=== PATIENT | female | born 1930 | race Caucasian/White ===

== ENCOUNTER 2020-01-30 10:36 | Emergency (ER) | payer MEDICARE, OTHER ==
[~2020-01-30] VITALS: Ht 160 cm; Wt 86.0 kg
--- NOTE | 2020-01-30 11:15 | Diagnostic Imaging Report ---
INDICATION: Cough PA and lateral chest Heart size and pulmonary vascularity are normal. Lungs are clear. There are no effusions or pneumothoraces. IMPRESSION: Negative chest Dictated by: Dictated on workstation # [id number]
[2020-01-30] MEDS ORDERED: BENZ100C18 PO (11:43)
[2020-01-30] MEDS ORDERED: AZEL137S11 NS (11:43)
--- NOTE | 2020-01-30 11:43 | ED General ---
General Chief Complaint: Cough/Cold/Flu Symptoms Stated Complaint: COUGH Nursing Triage Note: Patient presents to the ED with c/o of nonproductive cough and feeling unwell. She reports her cough started today and states, "I just don't feel well". Nursing Sepsis Screen: No Definite Risk History of Present Illness Date Seen by Provider: Jan 30, 2020 Time Seen by Provider: 11:41 Initial Comments Patient presenting to emergency department for evaluation of cough that started earlier today and she wanted to be checked for it. She says she has nasal congestion with it but no other symptoms including no fevers chills nausea vomiting shortness of breath production to the cough chest pain or leg edema. She says that the cough is really not that bad but she is worried about all of the suarez virus news. She denies any recent travel or contacts with [employer]. She is in no obvious distress with normal vital signs other than hypertension and she says she is due to take one of her blood pressure medicines. Allergies and Home Medications Allergies Coded Allergies: egg (Verified Allergy, Unknown, 01/30/20) Home Medications Azelastine HCl 137 Mcg/0.137 Ml [place].pump, 137 MCG NS BID Prescribed by: VELIA ORTIZ on 01/30/20 1143 Benzonatate 100 Mg Capsule, 100 MG PO TID PRN for cough Prescribed by: VELIA ORTIZ on 01/30/20 1143 Patient Home Medication List Home Medication List Reviewed: Yes Review of Systems Review of Systems Constitutional: no symptoms reported EENTM: nose congestion Respiratory: cough Cardiovascular: no symptoms reported Gastrointestinal: no symptoms reported Genitourinary: no symptoms reported Musculoskeletal: no symptoms reported Skin: no symptoms reported All Other Systems Reviewed Negative Unless Noted: Yes Past Kxvlidy-Yohtjp-Qxjvhx Hx Patient Social History Alcohol Use: Denies Use Recreational Drug Use: No Smoking Status: Never a Smoker 2nd Hand Smoke Exposure: No Recent Foreign Travel: No Contact w/Someone Who Travel: No Recent Infectious Disease Expo: No Recent Hopitalizations: No Physical Abuse: No Sexual Abuse: No Mistreated: No Fear: No Seasonal Allergies Seasonal Allergies: No Past Medical History Surgeries: Yes Adenoidectomy, Appendectomy, Cardiac, Eye Surgery, Gallbladder, Tonsillectomy Respiratory: No Cardiac: Yes (CHF) Angina, Cardiomyopathy, Heart Attack, High Cholesterol, Hypertension Neurological: No Genitourinary: Yes Gastrointestinal: Yes Diverticulosis Musculoskeletal: Yes Arthritis Endocrine: No HEENT: No Cancer: No Psychosocial: No Integumentary: No Blood Disorders: No Physical Exam Vital Signs Vital Signs - First Documented 01/30/20 10:55 Temp 36.9 Pulse 68 Resp 18 B/P (MAP) 201/79 (119) Pulse Ox 99 O2 Delivery Room Air Capillary Refill : Less Than 3 Seconds Height, Weight, BMI Height: '" Weight: lbs. oz. kg; 33.00 BMI Method: General Appearance: No Apparent Distress, WD/WN HEENT: PERRL/EOMI Neck: Full Range of Motion Respiratory: Lungs Clear, No Respiratory Distress Cardiovascular: Regular Rate, Rhythm Gastrointestinal: Non Tender, Soft Back: Normal Inspection Extremity: Normal Capillary Refill, No Pedal Edema Neurologic/Psychiatric: Alert, Oriented x3 Skin: Warm/Dry Progress/Results/Core Measures Suspected Sepsis Recent Fever Within 48 Hours: No Infection Criteria Present: Suspected New Infection New/Unexplained Altered Menta: No Sepsis Screen: No Definite Risk SIRS Temperature: Pulse: 68 Respiratory Rate: 18 Blood Pressure 201 /79 Mean: 119 Results/Orders Micro Results Microbiology 01/30/20 Influenza Types A,B Antigen (RAMOS) - Final, Complete My Orders Orders - VELIA ORTIZ DO Chest Pa/Lat (2 View) (01/30/20 10:55) Influenza A And B Antigens (01/30/20 10:55) Vital Signs/I&O 01/30/20 01/30/20 10:55 11:49 Temp 36.9 36.9 Pulse 68 68 Resp 18 18 B/P (MAP) 201/79 (119) 202/78 (119) Pulse Ox 99 99 O2 Delivery Room Air Capillary Refill : Less Than 3 Seconds Blood Pressure Mean: 119 Progress Note : Progress Note Patient presenting to emergency department for evaluation of a cough that is likely from an upper respiratory infection. Chest x-ray and flu swab were normal and she appears well with normal vital signs so she'll be discharged in stable condition and told to try taking cough drops first and if she is having more cough she could fill the Tessalon and nasal spray that I wrote for her. Patient aware and agreeable with plan for discharge and verbalized understanding of the need for follow-up and strict ED return precautions discussed including worsening shortness of breath fevers or other general concerns. Departure Impression Primary Impression: Cough Disposition: HOME, SELF-CARE Condition: Stable Departure-Patient Inst. Referrals: [facility]/JOSE ROBERTO (PCP) Primary Care Physician VIANNEY MILLER APRN (Family) Primary Care Physician Patient Instructions: Cough, Adult (DC) Scripts Benzonatate (TESSALON PERLES) 100 Mg Capsule 100 MG PO TID PRN for cough, #15 CAP Prov: VELIA ORTIZ DO 01/30/20 Azelastine HCl (Azelastine HCl) 137 Mcg/0.137 Ml [place].pump 137 MCG NS BID for 10 Days, #1 APPLIC Prov: VELIA ORTIZ DO 01/30/20 VELIA ORTIZ DO Jan 30, 2020 11:43
[2020-01-30 11:49] VITALS: BP 202/78
--- OUTSIDE RECORDS SUMMARY | 2020-01-30 12:24 | XMS REPORT | Continuity of Care Document ---
Author Organization Unknown Address Unknown Phone Unavailable Allergies There is no data. Medications There is no data. Problems There is no data. Procedures There is no data. Results Test Result Range TSH w/ FREE T4 - 02/02/19 14:46 TSH 2.13 mIU/L 0.40-4.50 T4, FREE 1.1 ng/dL 0.8-1.8 CMP - 02/02/19 14:46 GLUCOSE 82 mg/dL 65-99 UREA NITROGEN (BUN) 31 mg/dL 7-25 CREATININE 1.34 mg/dL 0.60-0.88 eGFR NON-AFR. GEORGIAN 36 mL/min/1.73m2 > OR = 60 eGFR 41 mL/min/1.73m2 > OR = 60 BUN/CREATININE RATIO 23 (calc) 6-22 SODIUM 140 mmol/L 135-146 POTASSIUM 4.8 mmol/L 3.5-5.3 CHLORIDE 104 mmol/L 98-110 CARBON DIOXIDE 25 mmol/L 20-32 CALCIUM 9.2 mg/dL 8.6-10.4 PROTEIN, TOTAL 6.8 g/dL 6.1-8.1 ALBUMIN 4.5 g/dL 3.6-5.1 GLOBULIN 2.3 g/dL (calc) 1.9-3.7 ALBUMIN/GLOBULIN RATIO 2.0 (calc) 1.0-2. 5 BILIRUBIN, TOTAL 0.6 mg/dL 0.2-1.2 ALKALINE PHOSPHATASE 117 U/L 33-130 AST 18 U/L 10-35 ALT 14 U/L 6-29 LIPID PANEL - 05/05/19 07:59 CHOLESTEROL, TOTAL 196 mg/dL <200 HDL CHOLESTEROL 46 mg/dL >50 TRIGLYCERIDES 199 mg/dL <150 LDL-CHOLESTEROL 118 mg/dL (calc) NRG CHOL/HDLC RATIO 4.3 (calc) <5.0 NON HDL CHOLESTEROL 150 mg/dL (calc) <13 0 CMP - 05/05/19 07:59 GLUCOSE 101 mg/dL 65-99 UREA NITROGEN (BUN) 39 mg/dL 7-25 CREATININE 1.45 mg/dL 0.60-0.88 eGFR NON-AFR. GEORGIAN 32 mL/min/1.73m2 > OR = 60 eGFR 37 mL/min/1.73m2 > OR = 60 BUN/CREATININE RATIO 27 (calc) 6-22 SODIUM 138 mmol/L 135-146 POTASSIUM 4.9 mmol/L 3.5-5.3 CHLORIDE 104 mmol/L 98-110 CARBON DIOXIDE 23 mmol/L 20-32 CALCIUM 9.0 mg/dL 8.6-10.4 PROTEIN, TOTAL 6.6 g/dL 6.1-8.1 ALBUMIN 4.2 g/dL 3.6-5.1 GLOBULIN 2.4 g/dL (calc) 1.9-3.7 ALBUMIN/GLOBULIN RATIO 1.8 (calc) 1.0-2. 5 BILIRUBIN, TOTAL 0.7 mg/dL 0.2-1.2 ALKALINE PHOSPHATASE 99 U/L 33-130 AST 15 U/L 10-35 ALT 12 U/L 6- TSH - 05/05/19 07:59 TSH 3.36 mIU/L 0.40-4.50 [facility] - 06/09/19 08:23 GLUCOSE 91 mg/dL 65-99 UREA NITROGEN (BUN) 27 mg/dL 7-25 CREATININE 1.07 mg/dL 0.60-0.88 eGFR NON-AFR. GEORGIAN 46 mL/min/1.73m2 > OR = 60 eGFR 54 mL/min/1.73m2 > OR = 60 BUN/CREATININE RATIO 25 (calc) 6-22 SODIUM 133 mmol/L 135-146 POTASSIUM 4.7 mmol/L 3.5-5.3 CHLORIDE 102 mmol/L 98-110 CARBON DIOXIDE 25 mmol/L 20-32 CALCIUM 8.9 mg/dL 8.6-10.4 TSH - 09/08/19 08:05 TSH 2.62 mIU/L 0.40-4.50 [facility] - 12/19/19 08:05 GLUCOSE 102 mg/dL 65-99 UREA NITROGEN (BUN) 27 mg/dL 7-25 CREATININE 1.22 mg/dL 0.60-0.88 eGFR NON-AFR. GEORGIAN 40 mL/min/1.73m2 > OR = 60 eGFR 46 mL/min/1.73m2 > OR = 60 BUN/CREATININE RATIO 22 (calc) 6-22 SODIUM 136 mmol/L 135-146 POTASSIUM 5.0 mmol/L 3.5-5.3 CHLORIDE 106 mmol/L 98-110 CARBON DIOXIDE 23 mmol/L 20-32 CALCIUM 9.5 mg/dL 8.6-10.4 PROTEIN, TOTAL 6.9 g/dL 6.1-8.1 ALBUMIN 4.5 g/dL 3.6-5.1 GLOBULIN 2.4 g/dL (calc) 1.9-3.7 ALBUMIN/GLOBULIN RATIO 1.9 (calc) 1.0-2. 5 BILIRUBIN, TOTAL 0.7 mg/dL 0.2-1.2 ALKALINE PHOSPHATASE 96 U/L 37-153 AST 14 U/L 10-35 ALT 12 U/L 6-29 TSH - 12/19/19 08:05 TSH 2.22 mIU/L 0.40-4.50 Encounters ACCT No. Visit Date/Time Discharge Status Pt. Type Provider Facility Loc./Unit Complaint [id number] 12/12/2019 12:20:00 12/12/2019 23:59: 59 CLS Outpatient VIANNEY MILLER [facility] [id number] 12/19/2019 08:00:00 Document Registration [id number] 09/08/2019 08:00:00 Document Registration [id number] 06/09/2019 08:15:00 Document Registration [id number] 05/05/2019 08:00:00 Document Registration [id number] 02/02/2019 14:00:00 Document Registration [id number] 01/30/2020 10:40:00 020 11:49:00 DIS Emergency VELIA ORTIZ DO [facility] ER FS COUGH
--- OUTSIDE RECORDS SUMMARY | 2020-01-30 12:24 | XMS REPORT ---
Author Author Katerina MILLER Organization [facility] Address [address] [place] [address] Care Team Providers Care Lead Electrician Name Role Phone VIANNEY MILLER Unavailable PROBLEMS Type Condition ICD9-CM Code QFC01-DB Code Onset Dates Condition S tatus SNOMED Code Problem Hypothyroidism (acquired) E03.9 Acti ve 395535265 Problem Seasonal allergic rhinitis, unspecified trigger J3 0.2 Active 613155584 Problem Mixed hyperlipidemia E78.2 Active 950048711 Problem Essential hypertension I10 Active 05293258 Problem Acquired hypothyroidism E03.9 Active 198517477 Problem Chronic congestive heart failure, unspecified he art failure type I50.9 Active 39064043 Problem Stage 3 chronic kidney disease N18.3 Active 019804137 ALLERGIES No Information ENCOUNTERS Encounter Location Date Diagnosis [address] [place] [address] March, [address] [place] [address] 07 Dec, 2019 Chronic congestive heart katiana lure, unspecified heart failure type I50.9 ; Stage 3 chronic kidney disease N18.3 ; Essential hypertension I10 ; Mixed hyperlipidemia E78.2 and Acquired hypothyroidism E03.[address] [place] [address] 04 Dec, 2019 Acquired hypothyroidism E03. 9 ; Essential hypertension I10 ; Stage 3 chronic kidney disease N18.3 and Mixed hyperlipidemia E78.2 [facility] [address] [place] [address] Nov, Viral URI J06.[address] [place] [address] Aug, Essential hypertension I10 ; Acquired hypothyroidism E03.9 ; Chronic congestive heart failure, unspecified heart failure type I50.9 ; Stage 3 chronic kidney disease N18.3 and Mixed hyperlipidemia E78.[address] [place] [address] Aug, Mixed hyperlipidemia E78.2 ; Essential hypertension I10 ; Stage 3 chronic kidney disease N18.3 ; Diarrhea, unspecified type R19.7 and Hypothyroidism (acquired) E03.[address] [place] [address] Aug, Diarrhea, unspecified type R 19.7 [address] [place] [address] Jul, Herpes zoster without compli cation B02.[address] [place] [address] Jun, Essential hypertension I10 [address] [place] [address] May, Essential hypertension I10 ; Chronic congestive heart failure, unspecified heart failure type I50.9 ; Hypothyroidism (acquired) E03.9 ; Stage 3 chronic kidney disease N18.3 and Mixed hyperlipidemia E78.[address] [place] [address] May, Stage 3 chronic kidney disea se N18.[address] [place] [address] May, [address] [place] [address] Apr, Chronic congestive heart katiana lure, unspecified heart failure type I50.9 ; Essential hypertension I10 and Stage 3 chronic kidney disease N18.[address] [place] [address] Apr, Elevated serum creatinine R7 9.89 ; Mixed hyperlipidemia E78.2 and Acquired hypothyroidism E03.[address] [place] [address] March, Pain of left leg M79.605 ; P ain in right leg M79.604 ; Acquired hypothyroidism E03.9 ; Essential hypertension I10 and Mixed hyperlipidemia E78.2 [facility] [address] [place] [address] Feb, Seasonal allergic rhinitis, unspecified trigger J30.[address] [place] [address] Jan, Elevated serum creatinine R7 9.[address] [place] [address] Jan, Acquired hypothyroidism E03. 9 ; Essential hypertension I10 ; Chronic congestive heart failure, unspecified heart failure type I50.9 ; Muscle cramp R25.2 and Yeast dermatitis B37.[address] [place] [address] Dec, Hypothyroidism (acquired) E0 3.9 IMMUNIZATIONS No Known Immunizations SOCIAL HISTORY Never Assessed REASON FOR VISIT Lab orders PLAN OF CARE VITAL SIGNS MEDICATIONS Unknown Medications RESULTS No Results PROCEDURES No Known procedures INSTRUCTIONS MEDICATIONS ADMINISTERED No Known Medications MEDICAL (GENERAL) HISTORY Type Description Date Medical History thyroid disorder Medical History hypertension Medical History heart attack Surgical History appendectomy Surgical History tonsillectomy and adenoidectomy Surgical History cardiac stent x2 Hospitalization History childbirth only Hospitalization History see surgeries x4 Hospitalization History heat attack
== END 2020-01-30 11:49 | disposition home or self-care (01) ==
LOC: ER FS 10:40
DX: R05 Cough (principal); I11.0 Hypertensive heart disease with heart failure; I50.9 Heart failure, unspecified
CPT/HCPCS: 71046; 87804

== ENCOUNTER 2020-09-28 16:17 | Emergency (ER) | payer MEDICARE, OTHER ==
[~2020-09-28 16:17] MED LIST: AZEL137S11 NS; BENZ100C18 PO
--- NOTE | 2020-09-28 16:37 | ED Cardiac General ---
History of Present Illness General Chief Complaint: Chest Pain Stated Complaint: CHEST PAIN; LT ARM Nursing Triage Note: Patient reports sudden onset of mild (/10) precordial chest pain this afternoon, states she took 1 nitroglycerin SL and the pain has completely resolved. 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 Source: patient Exam Limitations: no limitations History of Present Illness Date Seen by Provider: Sep 28, 2020 Time Seen by Provider: 16:20 Initial Comments 89-year-old female presents following an episode of chest pain which occurred home lasting just a couple minutes. Began her left chest and it radiation of pain to her left arm. She took one nitroglycerin and her symptoms resolved. She presents to the ER without chest pain and is feeling fine. Patient with history of CAD and typically does not take nitroglycerin. She states she took all of her daily medications today and has otherwise been feeling fine without recent illness, cough, soa, fever or chills, abdominal pain or nausea. Allergies and Home Medications Allergies Coded Allergies: egg (Verified Allergy, Unknown, 01/30/20) Home Medications Azelastine HCl 137 Mcg/0.137 Ml [facility].pump, 137 MCG NS BID Prescribed by: VELIA ORTIZ on 01/30/20 1143 Benzonatate 100 Mg Capsule, 100 MG PO TID PRN for cough Prescribed by: VELIA ORTIZ on 01/30/20 1143 Patient Home Medication List Home Medication List Reviewed: Yes Review of Systems Review of Systems Constitutional: No chills, No dizziness, No fever, No malaise, No weakness EENTM: No Symptoms Reported Respiratory: No Symptoms Reported; Denies Cough, Denies Shortness of Air Cardiovascular: Chest Pain; Denies Edema, Denies Irregular Heart Rate, Denies Lightheadedness, Denies Palpitations, Denies Syncope Gastrointestinal: Denies Abdominal Pain, Denies Constipated, Denies Diarrhea, Denies Vomiting Musculoskeletal: No back pain, No joint pain Skin: No change in color, No rash Psychiatric/Neurological: Denies Headache, Denies Numbness, Denies Paresthesia Past Uygvnif-Cvfrpo-Aitnwc Hx Past Med/Social Hx: Reviewed Nursing Past Med/Soc Hx Patient Social History 2nd Hand Smoke Exposure: No Recent Foreign Travel: No Contact w/Someone Who Travel: No Recent Infectious Disease Expo: No Recent Hopitalizations: No Seasonal Allergies Seasonal Allergies: No Past Medical History Surgeries: Yes Adenoidectomy, Appendectomy, Cardiac, Eye Surgery, Gallbladder, Tonsillectomy Respiratory: No Cardiac: Yes (CHF) Angina, Cardiomyopathy, Heart Attack, High Cholesterol, Hypertension Neurological: No Genitourinary: Yes Gastrointestinal: Yes Diverticulosis Musculoskeletal: Yes Arthritis Endocrine: No HEENT: No Cancer: No Psychosocial: No Integumentary: No Blood Disorders: No Physical Exam Vital Signs Vital Signs - First Documented 09/28/20 16:27 Temp 36.4 Pulse 87 Resp 18 B/P (MAP) 236/99 (144) Pulse Ox 98 O2 Delivery Room Air Capillary Refill : Less Than 3 Seconds Height, Weight, BMI Height: '" Weight: lbs. oz. kg; 33.00 BMI Method: General Appearance: No Apparent Distress, WD/WN Neck: Normal Inspection, Non Tender, Supple Respiratory: Chest Non Tender, Lungs Clear, Normal Breath Sounds, No Accessory Muscle Use Cardiovascular: Regular Rate, Rhythm, No Edema, No Gallop, No JVD Gastrointestinal: Non Tender, Soft Extremity: Normal Capillary Refill, Normal Inspection, Normal Range of Motion, Non Tender, No Calf Tenderness Neurologic/Psychiatric: Alert, Oriented x3, No Motor/Sensory Deficits, Normal Mood/Affect Progress/Results/Core Measures Results/Orders Lab Results Laboratory Tests Test 09/28/20 16:30 Range/Units White Blood Count 9.0 4.3-11.0 10^3/uL Red Blood Count 3.36 L 4.35-5.85 10^6/uL Hemoglobin 11.7 11.5-16.0 G/DL Hematocrit 34 L 35-52 % Mean Corpuscular Volume 100 H 80-99 FL Mean Corpuscular Hemoglobin 35 H 25-34 PG Mean Corpuscular Hemoglobin Concent 35 32-36 G/DL Red Cell Distribution Width 11.5 10.0-14.5 % Platelet Count 198 130-400 10^3/uL Mean Platelet Volume 10.7 H 7.4-10.4 FL Immature Granulocyte % (Auto) 0 % Neutrophils (%) (Auto) 66 42-75 % Lymphocytes (%) (Auto) 25 12-44 % Monocytes (%) (Auto) 7 0-12 % Eosinophils (%) (Auto) 1 0-10 % Basophils (%) (Auto) 0 0-10 % Neutrophils # (Auto) 6.0 1.8-7.8 X 10^3 Lymphocytes # (Auto) 2.2 1.0-4.0 X 10^3 Monocytes # (Auto) 0.7 0.0-1.0 X 10^3 Eosinophils # (Auto) 0.1 0.0-0.3 10^3/uL Basophils # (Auto) 0.0 0.0-0.1 10^3/uL Immature Granulocyte # (Auto) 0.0 0.0-0.1 10^3/uL Sodium Level 126 L 135-145 MMOL/L Potassium Level 5.0 3.6-5.0 MMOL/L Chloride Level 94 L 98-107 MMOL/L Carbon Dioxide Level 22 21-32 MMOL/L Anion Gap 10 5-14 MMOL/L Blood Urea Nitrogen 25 H 7-18 MG/DL Creatinine 1.33 H 0.60-1.30 MG/DL Estimat Glomerular Filtration Rate 38 BUN/Creatinine Ratio 19 Glucose Level 123 H 70-105 MG/DL Calcium Level 8.7 8.5-10.1 MG/DL Corrected Calcium 8.5 8.5-10.1 MG/DL Total Bilirubin 0.6 0.1-1.0 MG/DL Aspartate Amino Transf (AST/SGOT) 17 5-34 U/L Alanine Aminotransferase (ALT/SGPT) 13 0-55 U/L Alkaline Phosphatase 112 40-136 U/L Troponin I < 0.30 <0.30 NG/ML Total Protein 6.7 6.4-8.2 GM/DL Albumin 4.3 3.2-4.5 GM/DL My Orders Orders - ROVENSTINEJESSICA DO Ed Iv/Invasive Line Start (09/28/20 16:23) Chest 1 View Ap/Pa Only (09/28/20 16:23) Ekg Tracing (09/28/20 16:23) Cbc With Automated Diff (09/28/20 16:23) Comprehensive Metabolic Panel (09/28/20 16:23) Troponin I Fs (09/28/20 16:23) Vital Signs/I&O 09/28/20 09/28/20 09/28/20 16:27 16:36 17:35 Temp 36.4 Pulse 87 60 Resp 18 18 B/P (MAP) 236/99 (144) 198/73 Pulse Ox 98 94 O2 Delivery Room Air Room Air Room Air Blood Pressure Mean: 144 Progress Progress Note : Progress Note Patient without any episode of chest pain for entire ER visit, remained asymptomatic. Normal vital signs, EKG labs and chest x-ray. Likely episode of angina, relieved with one nitroglycerin. Discussed taking when necessary nitroglycerin for chest pain, up to 3 if necessary and calling 911 thereafter. Patient states this is what her hotel clerk told her and she understands. Initial ECG Impression Date: Sep 28, 2020 Initial ECG Impression Time: 16:20 Initial ECG Rate: 80 Initial ECG Rhythm: Normal Sinus Initial ECG Impression: Normal Comment RBBB Diagnostic Imaging Diagonstic Imaging: Xray Plain Films/CT/US/NM/MRI: chest Comments COMPARISON STUDY: Chest from January 29. FINDINGS: Frontal view of the chest demonstrates the lungs to be clear. The heart, mediastinum, pulmonary vascularity and visualized bony thorax are normal. IMPRESSION: Normal chest. Dictated by: Dictated on workstation # [id number] Dict: 09/28/20 1633 Trans: 09/28/20 1644 [facility] [id number] Interpreted by: NALLELY MCCRACKEN MD Electronically signed by: NALLELY MCCRACKEN MD 09/28/20 1644 Departure Impression Primary Impression: Chest pain Qualified Codes: R07.9 - Chest pain, unspecified Disposition: 01 HOME, SELF-CARE Condition: Stable Departure-Patient Inst. Decision time for Depature: 17:07 Referrals: [facility] (PCP) Primary Care Physician VIANNEY MILLER APRN (Family) Primary Care Physician Patient Instructions: Chest Pain (DC) Add. Discharge Instructions: Call your Sales Ledger Administrator on Wednesday to notify them of your episode of chest pain relieved with 1 nitroglycerin. If you have a return of chest pain, please take a nitroglycerin every 5 minutes (up to 3) and if not relieved after 3, call 911 and get to the nearest ER All discharge instructions reviewed with patient and/or family. Voiced understanding. JESSICA DIAMOND DO Sep 28, 2020 16:37
[2020-09-28 16:42] LABS: BASOPHILS % (AUTO) 0 % (0-10); EOSINOPHILS % (AUTO) 1 % (0-10); HEMATOCRIT 34 % (35-52); HEMOGLOBIN 11.7 G/DL (11.5-16.0); LYMPHOCYTES # (AUTO) 2.2 X 10^3 (1.0-4.0); LYMPHOCYTES % (AUTO) 25 % (12-44); MEAN CORPUSCULAR HEMOGLOBIN 35 PG (25-34); MEAN CORPUSCULAR HGB CONC 35 G/DL (32-36); MEAN CORPUSCULAR VOLUME 100 FL (80-99); MEAN PLATELET VOLUME 10.7 FL (7.4-10.4); MONOCYTES % (AUTO) 7 % (0-12); NEUTROPHILS % (AUTO) 66 % (42-75); PLATELET COUNT 198 10^3/uL (130-400)
[2020-09-28 16:43] LABS: EOSINOPHILS # (AUTO) 0.1 10^3/uL (0.0-0.3); MONOCYTES # (AUTO) 0.7 X 10^3 (0.0-1.0)
--- NOTE | 2020-09-28 16:45 | Diagnostic Imaging Report ---
INDICATION: Chest pain, left arm pain, history of myocardial infarction. COMPARISON STUDY: Chest from January 29. FINDINGS: Frontal view of the chest demonstrates the lungs to be clear. The heart, mediastinum, pulmonary vascularity and visualized bony thorax are normal. IMPRESSION: Normal chest. Dictated by: Dictated on workstation # [id number]
[2020-09-28 16:55] LABS: BUN/CREATININE RATIO 19; CARBON DIOXIDE 22 MMOL/L (21-32); CHLORIDE 94 MMOL/L (98-107); CREATININE SERUM 1.33 MG/DL (0.60-1.30); GFR ESTIMATED 38; SODIUM 126 MMOL/L (135-145)
[2020-09-28 16:56] LABS: ALANINE AMINOTRANSFERASE 13 U/L (0-55); ALBUMIN 4.3 GM/DL (3.2-4.5); ALKALINE PHOSPHATASE 112 U/L (40-136); BILIRUBIN,TOTAL 0.6 MG/DL (0.1-1.0); CALCIUM 8.7 MG/DL (8.5-10.1); GLUCOSE 123 MG/DL (70-105); TOTAL PROTEIN 6.7 GM/DL (6.4-8.2)
[2020-09-28 17:35] VITALS: BP 198/73
== END 2020-09-28 17:24 | disposition home or self-care (01) ==
LOC: EDUNIT# 16:17 → ER FS 16:20
DX: R07.9 Chest pain, unspecified (principal); I25.2 Old myocardial infarction
CPT/HCPCS: 36415; 71045; 80053; 84484; 85025

== ENCOUNTER 2020-12-03 10:36 | Emergency (ER) | payer MEDICARE, OTHER ==
[~2020-12-03] VITALS: Ht 160 cm; Wt 81.6 kg
--- NOTE | 2020-12-03 10:59 | ED General ---
General Chief Complaint: Trauma-Non Activation Stated Complaint: FALL Nursing Triage Note: Patient reports she fell getting into her vehicle on 11/26/2020. She states she hit the back of her head on concrete, states she has been feeling lightheaded, dizzy, and slightly nauseous since she fell. Patient states she takes a baby aspirin every day, no other blood thinners. Nursing Sepsis Screen: No Definite Risk Source of Information: Patient Exam Limitations: No Limitations History of Present Illness Date Seen by Provider: Dec 03, 2020 Time Seen by Provider: 11:20 Initial Comments Patient presents with feeling of lightheadedness and nausea for the past one week occurring after a fall that she had on November 26. Patient states that she was getting under her car and her hand slipped and she fell backwards hitting her head on the concrete. She denies any loss of consciousness, confusion or feeling dazed. She did have a slight headache and the nausea which is been intermittent since then, she feels worse today. Denies any weakness of extremities, neck or back pain. Denies any extremity pain. Headache is slight and nausea is slight without vomiting. Denies history of stroke, seizure or concussion. Patient does take a baby aspirin daily. Allergies and Home Medications Allergies Coded Allergies: egg (Verified Allergy, Unknown, 01/30/20) Home Medications Azelastine HCl 137 Mcg/0.137 Ml [place].pump, 137 MCG NS BID Prescribed by: VELIA ORTIZ on 01/30/20 1143 Benzonatate 100 Mg Capsule, 100 MG PO TID PRN for cough Prescribed by: VELIA ORTIZ on 01/30/20 1143 Meclizine HCl 25 Mg Tablet, 25 MG PO Q8H Prescribed by: JESSICA DIAMOND on 12/03/20 1140 Ondansetron 4 Mg Tab.rapdis, 4 MG PO TID Prescribed by: JESSICA BAGLEYSTJUNIOR on 12/03/20 1140 Patient Home Medication List Home Medication List Reviewed: Yes Review of Systems Review of Systems Constitutional: No chills; dizziness; No malaise, No weakness Respiratory: no symptoms reported; No cough, No short of breath Cardiovascular: no symptoms reported Gastrointestinal: No abdominal pain, No constipation, No diarrhea, No loss of appetite; nausea; No vomiting Musculoskeletal: no symptoms reported; No back pain, No joint pain, No neck pain Psychiatric/Neurological: See HPI; Denies Anxiety, Denies Depressed, Denies Emotional Problems; Headache (slight); Denies Numbness, Denies Paresthesia, Denies Pre-Existing Deficit, Denies Seizure, Denies Tingling, Denies Tremors, Denies Weakness Past Zgfvwrl-Hqibqm-Xlrbbd Hx Past Med/Social Hx: Reviewed Nursing Past Med/Soc Hx Patient Social History 2nd Hand Smoke Exposure: No Recent Infectious Disease Expo: No Recent Hopitalizations: No Seasonal Allergies Seasonal Allergies: No Past Medical History Surgeries: Yes Adenoidectomy, Appendectomy, Cardiac, Eye Surgery, Gallbladder, Tonsillectomy Respiratory: No Cardiac: Yes (CHF) Angina, Cardiomyopathy, Heart Attack, High Cholesterol, Hypertension Neurological: No Genitourinary: Yes Gastrointestinal: Yes Diverticulosis Musculoskeletal: Yes Arthritis Endocrine: No HEENT: No Cancer: No Psychosocial: No Integumentary: No Blood Disorders: No Physical Exam Vital Signs Vital Signs - First Documented 12/03/20 10:43 Temp 36.7 Pulse 67 Resp 18 B/P (MAP) 217/84 (128) Pulse Ox 98 O2 Delivery Room Air Capillary Refill : Less Than 3 Seconds Height, Weight, BMI Height: '" Weight: lbs. oz. kg; 31.00 BMI Method: General Appearance: No Apparent Distress, WD/WN Eyes: Bilateral Eye Normal Inspection, Bilateral Eye PERRL, Bilateral Eye EOMI HEENT: PERRL/EOMI, Normal ENT Inspection Neck: Full Range of Motion, Normal Inspection, Non Tender, Supple Respiratory: Chest Non Tender, Lungs Clear, Normal Breath Sounds, No Accessory Muscle Use, No Respiratory Distress Cardiovascular: Regular Rate, Rhythm, No Edema, No JVD, Normal Peripheral Pulses Gastrointestinal: Normal Bowel Sounds, Non Tender, Soft Back: Normal Inspection, No CVA Tenderness Extremity: Normal Capillary Refill, Normal Inspection, Non Tender Neurologic/Psychiatric: Alert, Oriented x3, No Motor/Sensory Deficits, Normal Mood/Affect, table games floor supervisor II-XII Norm as Tested Skin: Normal Color, Warm/Dry Progress/Results/Core Measures Suspected Sepsis Recent Fever Within 48 Hours: No Infection Criteria Present: None New/Unexplained Altered Menta: No Sepsis Screen: No Definite Risk SIRS Temperature: Pulse: 67 Respiratory Rate: 18 Laboratory Tests 12/03/20 11:20: White Blood Count 6.2 Blood Pressure 217 /84 Mean: 128 Laboratory Tests 12/03/20 11:20: Creatinine 1.49H, Platelet Count 182, Total Bilirubin 0.4 Results/Orders Lab Results Laboratory Tests Test 12/03/20 11:20 Range/Units White Blood Count 6.2 4.3-11.0 10^3/uL Red Blood Count 3.45 L 4.35-5.85 10^6/uL Hemoglobin 11.5 11.5-16.0 G/DL Hematocrit 36 35-52 % Mean Corpuscular Volume 103 H 80-99 FL Mean Corpuscular Hemoglobin 33 25-34 PG Mean Corpuscular Hemoglobin Concent 32 32-36 G/DL Red Cell Distribution Width 11.9 10.0-14.5 % Platelet Count 182 130-400 10^3/uL Mean Platelet Volume 10.5 H 7.4-10.4 FL Immature Granulocyte % (Auto) 1 % Neutrophils (%) (Auto) 76 H 42-75 % Lymphocytes (%) (Auto) 14 12-44 % Monocytes (%) (Auto) 7 0-12 % Eosinophils (%) (Auto) 1 0-10 % Basophils (%) (Auto) 1 0-10 % Neutrophils # (Auto) 4.7 1.8-7.8 X 10^3 Lymphocytes # (Auto) 0.9 L 1.0-4.0 X 10^3 Monocytes # (Auto) 0.5 0.0-1.0 X 10^3 Eosinophils # (Auto) 0.1 0.0-0.3 10^3/uL Basophils # (Auto) 0.0 0.0-0.1 10^3/uL Immature Granulocyte # (Auto) 0.0 0.0-0.1 10^3/uL Sodium Level 135 135-145 MMOL/L Potassium Level 5.5 H 3.6-5.0 MMOL/L Chloride Level 103 98-107 MMOL/L Carbon Dioxide Level 23 21-32 MMOL/L Anion Gap 9 5-14 MMOL/L Blood Urea Nitrogen 30 H 7-18 MG/DL Creatinine 1.49 H 0.60-1.30 MG/DL Estimat Glomerular Filtration Rate 33 BUN/Creatinine Ratio 20 Glucose Level 94 70-105 MG/DL Calcium Level 9.1 8.5-10.1 MG/DL Corrected Calcium 8.9 8.5-10.1 MG/DL Total Bilirubin 0.4 0.1-1.0 MG/DL Aspartate Amino Transf (AST/SGOT) 15 5-34 U/L Alanine Aminotransferase (ALT/SGPT) 12 0-55 U/L Alkaline Phosphatase 105 40-136 U/L Total Protein 6.7 6.4-8.2 GM/DL Albumin 4.3 3.2-4.5 GM/DL My Orders Orders - JESSICA DIAMOND DO Cbc With Automated Diff (12/03/20 11:00) Comprehensive Metabolic Panel (12/03/20 11:00) Ct Head Wo (12/03/20 11:32) Ns Iv 500 Ml (Sodium Chloride 0.9%) (12/03/20 12:15) Vital Signs/I&O 12/03/20 10:43 Temp 36.7 Pulse 67 Resp 18 B/P (MAP) 217/84 (128) Pulse Ox 98 O2 Delivery Room Air Capillary Refill : Less Than 3 Seconds Blood Pressure Mean: 128 Diagnostic Imaging Diagonstic Imaging: CT Plain Films/CT/US/NM/MRI: head Comments INDICATION: Fall striking the head There is no intracranial hemorrhage. There is cerebral cortical atrophy. The ventricular caliber is congruent with the degree of sulcation. No doug hydrocephalus. No focal or generalized cerebral edema. No hemo-sinus. No calvarial fracture deformity. No mass or mass effect. No evidence for an elevation of the intracranial pressures. IMPRESSION: Chronic atrophy. No hemorrhage or acute appearing abnormality. Dictated on workstation # [id number] Dict: 12/03/20 1205 Trans: 12/03/20 1208 [facility] [id number] Interpreted by: EARLENE TAVAREZ Electronically signed by: Departure Impression Primary Impression: Closed head injury Qualified Codes: S09.90XA - Unspecified injury of head, initial encounter Additional Impressions: Mild concussion Qualified Codes: S06.0X0A - Concussion without loss of consciousness, initial encounter Dehydration Disposition: HOME, SELF-CARE Condition: Stable Departure-Patient Inst. Referrals: [facility]/JOSE ROBERTO (PCP) Primary Care Physician VIANNEY MILLER APRN (Family) Primary Care Physician Patient Instructions: Closed Head Injury (DC), Concussion, Adult ED, Dehydration, Adult (DC) Add. Discharge Instructions: Follow up with your Primary doctor in 1 week for re-evaluation of your concussion symptoms and dehydration. If your symptoms progress or get worse you are advised to go to the nearest ER for further evaluation All discharge instructions reviewed with patient and/or family. Voiced understanding. Scripts Ondansetron (Ondansetron Odt) 4 Mg Tab.rapdis 4 MG PO TID for Nausea, #15 TAB Prov: JESSICA DIAMOND DO 12/03/20 Meclizine HCl (Meclizine HCl) 25 Mg Tablet 25 MG PO Q8H for Dizziness, #20 TAB Prov: JESSICA DIAMOND DO 12/03/20 JESSICA DIAMOND DO Dec 03, 2020 10:59
[2020-12-03 11:29] LABS: EOSINOPHILS % (AUTO) 1 % (0-10); HEMATOCRIT 36 % (35-52); HEMOGLOBIN 11.5 G/DL (11.5-16.0); LYMPHOCYTES % (AUTO) 14 % (12-44); MEAN CORPUSCULAR HEMOGLOBIN 33 PG (25-34); MEAN CORPUSCULAR HGB CONC 32 G/DL (32-36); MEAN CORPUSCULAR VOLUME 103 FL (80-99); MEAN PLATELET VOLUME 10.5 FL (7.4-10.4); MONOCYTES % (AUTO) 7 % (0-12); NEUTROPHILS % (AUTO) 76 % (42-75); PLATELET COUNT 182 10^3/uL (130-400); WHITE BLOOD COUNT 6.2 10^3/uL (4.3-11.0)
[2020-12-03 11:30] LABS: BASOPHILS % (AUTO) 1 % (0-10); EOSINOPHILS # (AUTO) 0.1 10^3/uL (0.0-0.3); LYMPHOCYTES # (AUTO) 0.9 X 10^3 (1.0-4.0); MONOCYTES # (AUTO) 0.5 X 10^3 (0.0-1.0); NEUTROPHILS # (AUTO) 4.7 X 10^3 (1.8-7.8)
[2020-12-03] MEDS ORDERED: ONDA4TAB11 PO (11:40)
[2020-12-03] MEDS ORDERED: MECL-149 PO (11:40)
[2020-12-03 11:47] LABS: BILIRUBIN,TOTAL 0.4 MG/DL (0.1-1.0); CALCIUM 9.1 MG/DL (8.5-10.1); CREATININE SERUM 1.49 MG/DL (0.60-1.30); POTASSIUM 5.5 MMOL/L (3.6-5.0); TOTAL PROTEIN 6.7 GM/DL (6.4-8.2)
[2020-12-03 11:48] LABS: ALBUMIN 4.3 GM/DL (3.2-4.5)
--- NOTE | 2020-12-03 12:08 | Diagnostic Imaging Report ---
PROCEDURE: CT head without contrast. TECHNIQUE: Multiple contiguous axial images were obtained through the brain without the use of intravenous contrast. Auto Exposure Controls were utilized during the CT exam to meet ALARA standards for radiation dose reduction. INDICATION: Fall striking the head There is no intracranial hemorrhage. There is cerebral cortical atrophy. The ventricular caliber is congruent with the degree of sulcation. No doug hydrocephalus. No focal or generalized cerebral edema. No hemo-sinus. No calvarial fracture deformity. No mass or mass effect. No evidence for an elevation of the intracranial pressures. IMPRESSION: Chronic atrophy. No hemorrhage or acute appearing abnormality. Dictated by: Dictated on workstation # [id number]
[2020-12-03] MEDS ORDERED: NS IV 500 ML 500 ML IV SCH (12:15)
[2020-12-03 12:51] VITALS: BP 172/72
== END 2020-12-03 12:51 | disposition home or self-care (01) ==
LOC: EDUNIT# 10:36 → ER FS 10:40
DX: S06.0X0A Concussion without loss of consciousness, initial encounter (principal); E86.0 Dehydration; I25.2 Old myocardial infarction; W01.198A Fall on same level from slipping, tripping and stumbling with subsequent striking against other object, initial encounter
CPT/HCPCS: 36415; 70450; 80053; 85025